=== PATIENT | female | born 1980 | race Hispanic/Latino ===

== ENCOUNTER 2022-01-11 23:52 | Emergency (ER) | payer SELFPAY ==
[2022-01-12] MEDS ORDERED: Sulfameth/Trimethoprim DS 800-160mg TAB ONE (00:26)
[2022-01-12] MEDS ORDERED: traMADol HCl 50 MG TAB ONE (00:26)
== END 2022-01-12 00:45 | disposition home or self-care (01) ==
LOC: NAV ERS 23:52
DX: N76.2 Acute vulvitis (principal); E11.9 Type 2 diabetes mellitus without complications
CPT/HCPCS: 99283